=== PATIENT | female | born 1950 | race Caucasian/White ===

== ENCOUNTER → 2024-01-12 09:05 | Outpatient (REF) | payer MEDICARE, SELFPAY | LOC: HWWDC 09:05 | PROVIDERS: ATTENDING PHYSICIAN Family Medicine | DX: Z12.31 Encounter for screening mammogram for malignant neoplasm of breast (principal); Z77.090 Contact with and (suspected) exposure to asbestos | CPT/HCPCS: 71046; 77063; 77067 ==

== ENCOUNTER → 2024-08-06 06:24 | Day surgery (SDC) | payer MEDICARE, SELFPAY | LOC: GI 06:24 | PROVIDERS: ATTENDING PHYSICIAN Internal Medicine Gastroenterology | DX: Z12.11 Encounter for screening for malignant neoplasm of colon (principal); K57.30 Diverticulosis of large intestine without perforation or abscess without bleeding; K64.0 First degree hemorrhoids; D12.3 Benign neoplasm of transverse colon; K63.5 Polyp of colon; Z86.0100 Personal history of colon polyps, unspecified | CPT/HCPCS: 45385; 45381; 45380; 88305; 88341; 88342 ==